=== PATIENT | female | born 1990 | race Caucasian/White ===

== ENCOUNTER 2024-08-12 10:16 | Outpatient (REF) | payer OTHER, SELFPAY ==
[2024-08-12 14:24] LABS: Amphetamine Screen Urine Not Detected (Not Detect); Barbiturates, Urine Not Detected (Not Detect); Benzodiazepines Screen Urine Not Detected (Not Detect); Buprenorphine Scr Not Detected (Not Detect); Cannabinoid Screen Urine Not Detected (Not Detect); Cocaine Screen Urine Not Detected (Not Detect); Fentanyl, urine Not Detected (Not Detect); Methadone Screen, Urine Not Detected (Not Detect); Opiate Screen Urine Not Detected (Not Detect); Oxycodone Screen Urine Not Detected (Not Detect); Phencyclidine Screen Urine Not Detected (Not Detect)
== END 2024-08-12 10:17 | disposition home or self-care (01) ==
LOC: HO.LNP 10:16
PROVIDERS: Visit Provider Psychiatry & Neurology Psychiatry
DX: F33.2 Major depressive disorder, recurrent severe without psychotic features (principal); F10.99 Alcohol use, unspecified with unspecified alcohol-induced disorder; F41.1 Generalized anxiety disorder
CPT/HCPCS: 80307

== ENCOUNTER → 2024-08-12 10:45 | Outpatient (BNV) | payer OTHER, SELFPAY | PROVIDERS: Visit Provider Psychiatry & Neurology Psychiatry | DX: F33.2 Major depressive disorder, recurrent severe without psychotic features (principal); F41.1 Generalized anxiety disorder; F10.10 Alcohol abuse, uncomplicated; F43.11 Post-traumatic stress disorder, acute; Z86.59 Personal history of other mental and behavioral disorders | CPT/HCPCS: 90834; 99214 ==

== ENCOUNTER 2024-08-24 10:30 | Outpatient (RCR) | payer OTHER, SELFPAY ==
[2024-08-12 09:38] VITALS: BMI 31.0
[2024-08-12 10:58] VITALS: BP 98/62; PULSE 76; TEMP 36.9
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
--- NOTE | 2024-08-23 15:24 | HO.PHP ---
Model Set Artist called Cassia at [facility] to inform them of Lisa Prieto therapist status. Pt reports he has a temporary therapist therefore PHP is requesting a call back to confirm [facility] will be assigning him a permanent one.
--- NOTE | 2024-08-24 11:54 | HO.PHP ---
Lisa (Conner) has a follow-up appt with Omid scheduled for 09/06/24 at 8:30 am in the [facility]. [facility] informed PHP that Lisa (Conner) will be transitioned into long-term therapy when he completes crisis therapy with Omid. Pt is aware.
--- NOTE | 2024-08-25 16:09 | HO.PHP ---
This residential mortgage underwriter reached out to pt twice regarding update to discharge status and if they are coming to programming tomorrow with no response either attempt. MTF.
--- NOTE | 2024-08-25 22:32 | PM.EVENT ---
Event Note Date of Service: 08/25/24 Event Note: Patient called out from program today although was scheduled to be seen. Time Spent With Patient Time: Total time managing care of this patient today ____ minutes.
--- NOTE | 2024-08-26 13:01 | HO.PHP ---
This television writer attempted to reach out to Lisa Prieto twice with no success to obtain discharge information, reached out to emergency contact David, with no success. There was a callback that the number listed on our attendance sheet did not match the contact demographics in [facility]. Staff reached out to David's voicemail that stated his name at requesting a call back to confirm the patient was safe because of the nature of the discharge was left with uncertainty.
== END 2024-08-24 23:59 | disposition home or self-care (01) ==
LOC: HO.PHPA 10:30
PROVIDERS: Visit Provider Psychiatry & Neurology Psychiatry
DX: F33.2 Major depressive disorder, recurrent severe without psychotic features (principal); F41.1 Generalized anxiety disorder; F43.10 Post-traumatic stress disorder, unspecified; F64.9 Gender identity disorder, unspecified; F10.10 Alcohol abuse, uncomplicated; Z86.59 Personal history of other mental and behavioral disorders; Z79.899 Other long term (current) drug therapy
CPT/HCPCS: 90791; 90853